=== PATIENT | female | born 1995 | race Caucasian/White ===

== ENCOUNTER 2017-04-30 19:46 | Emergency (ER) | payer BC, OTHER ==
[~2017-04-30] VITALS: Ht 157.5 cm; Wt 59.0 kg
[2017-04-30] MEDS ORDERED: DESO1TAB35 (20:40)
[2017-04-30 21:25] LABS: KETONES,URINE 1+ (NEGATIVE); LEUKOCYTE ESTERASE ,URINE 2+ (NEGATIVE); NITRITE,URINE NEGATIVE (NEGATIVE); PH,URINE 5 (5-9); PROTEIN,URINE 1+ (NEGATIVE); UROBILINOGEN,URINE 4 MG/DL (NORMAL)
[2017-04-30 21:32] LABS: SQUAMOUS EPITHELIAL CELL,UR 25-50 /HPF
[2017-04-30 21:33] LABS: BILIRUBIN,URINE 1+ (NEGATIVE)
--- NOTE | 2017-04-30 21:43 | ED Back Pain ---
General Chief Complaint: Back Problems Stated Complaint: BACK PAIN Nursing Triage Note: c/o LEFT LOWER BACK PAIN STARTING OVER THE SUMMER. STATES NO INJURY. HAS BEEN SEEING CHIROPRACTOR BUT THIS WEEK THE PAIN HAS BEEN WORSE. SAW [facility] THIS WEEK AND WAS GIVEN MUSCLE RELAXOR AND ANTIINFLAMMATORIES BUT NOT WORKING. NO RADIATION, NUMBESS OR TINGLING Source of Information: Patient Exam Limitations: No Limitations History of Present Illness Time Seen by Provider: 21:43 Initial Comments 21-year-old female patient presents to the emergency department complains of left low back pain for approximately 3-4 months. Denies any known injury. Patient states she was seen by a chiropractor at the end of February without improvement in symptoms. Patient was given a muscle relaxant and Naprosyn earlier this week without improvement in symptoms. Patient is scheduled on May 26 with Joaquina Holt. Denies bowel or bladder incontinence. Denies fever, chills, N/V/D. Pain occasionally radiates to the rt low back. Location: Paraspinous Muscles Timing/Duration: Other (3-4 months) Pain/Injury Location: Back Method of Injury: Unknown Modifying Factors: Worse With Movement Associated Symptoms: muscle spasms, No fever, No weakness, No numbness in legs/ feet, No tingling in legs/feet, No sensory/motor loss, lower back pain, No loss of bladder control, No loss of bowel control Allergies and Home Medications Allergies Coded Allergies: No Known Drug Allergies (Unverified , 04/30/17) Home Medications Desogestrel-Ethinyl Estradiol 1 Each Tablet, (Reported) Nitrofurantoin Monohyd/M-Cryst 100 Mg Capsule, 1 TAB PO BID, #14 Ref 0 Prescribed by: JOSE SYLVESTER on 04/30/17 2337 Prednisone 20 Mg Tab, 40 MG PO DAILY, #10 Ref 0 Prescribed by: JOSE SYLVESTER on 04/30/17 2325 Tramadol HCl 50 Mg Tablet, 50 MG PO Q4H PRN for PAIN-MILD TO MODERATE, #14 Ref 0 Prescribed by: JOSE SYLVESTER on 04/30/174 Constitutional: No chills, No fever, No malaise EENTM: no symptoms reported Respiratory: no symptoms reported Cardiovascular: no symptoms reported Gastrointestinal: No abdominal pain, No constipation, No diarrhea, No nausea, No vomiting Genitourinary: No decreased output, No discharge, No dysuria, No frequency, No hematuria Musculoskeletal: see HPI, back pain, No joint pain Skin: no symptoms reported Psychiatric/Neurological: Denies Numbness, Denies Paresthesia, Denies Tingling , Denies Weakness All Other Systems Reviewed Negative Unless Noted: Yes (Negative excepted noted.) Past Jpsqqar-Wxcose-Jehdga Hx Patient Social History Alcohol Use: Occasionally Uses Recreational Drug Use: No 2nd Hand Smoke Exposure: No Recent Foreign Travel: No Contact w/Someone Who Travel: No Recent Hopitalizations: No Physical Abuse: No Sexual Abuse: No Mistreated: No Fear: No Immunizations Up To Date Tetanus Booster (TDap): Less than 5yrs PED Vaccines UTD: Yes Seasonal Allergies Seasonal Allergies: No Surgeries History of Surgeries: Yes Surgeries: Adenoidectomy, Tonsillectomy Respiratory History of Respiratory Disorde: No Cardiovascular History of Cardiac Disorders: No Neurological History of Neurological Disord: Yes Neurological Disorders: Headaches /Migraines Genitourinary History of Genitourinary Disor: No Gastrointestinal History of Gastrointestinal Di: No Musculoskeletal History of Musculoskeletal Dis: No Endocrine History of Endocrine Disorders: No HEENT History of HEENT Disorders: No Cancer History of Cancer: No Psychosocial History of Psychiatric Problem: No Suicide Risk Score: 0 Integumentary History of Skin or Integumenta: No Blood Transfusions History of Blood Disorders: No Adverse Reaction to a Blood Tr: No Reviewed Nursing Assessment Reviewed/Agree w Nursing PMH: Yes Family Medical History Significant Family History: No Pertinent Family Hx Physical Exam Vital Signs Vital Sign - Last 12Hours 04/30/17 04/30/17 20:34 23:48 Temp 97.6 Pulse 88 Resp 18 B/P (MAP) 124/92 Pulse Ox 99 Capillary Refill : General Appearance: No Apparent Distress, WD/WN HEENT: PERRL/EOMI, Pharynx Normal Neck: Normal Inspection, Supple Cardiovascular: Regular Rate, Rhythm, No Edema, No Murmur, Normal Peripheral Pulses Respiratory: Lungs Clear, Normal Breath Sounds, No Accessory Muscle Use, No Respiratory Distress Peripheral Pulses: 2+ Dorsalis Pedis (R), 2+ Left Dors-Pedis (L), 2+ Radial Pulses (R), 2+ Radial Pulses (L) Gastrointestinal: Normal Bowel Sounds, No Organomegaly, Soft, No Distended, No Guarding, No Rebound, Tenderness (mild suprapubic tenderness.) Back: Normal Inspection, No CVA Tenderness, No Vertebral Tenderness, No Decreased Range of Motion Extremity: Normal Capillary Refill, Normal Inspection, Normal Range of Motion, Non Tender, No Calf Tenderness, No Pedal Edema Neurologic/Psychiatric: Alert, Oriented x3, No Motor/Sensory Deficits, Normal Mood/Affect Skin: Normal Color, Warm/Dry Progress/Results/Core Measures Results/Orders Lab Results Laboratory Tests Test 04/30/17 20:30 Range/Units Urine Color YELLOW Urine Clarity SLIGHTLY CLOUDY Urine pH 5 5-9 Urine Specific [place] 1.025 H 1.016-1.022 Urine Protein 1+ H NEGATIVE Urine Glucose (UA) NEGATIVE NEGATIVE Urine Ketones 1+ H NEGATIVE Urine Nitrite NEGATIVE NEGATIVE Urine Bilirubin 1+ H NEGATIVE Urine Urobilinogen 4 H NORMAL MG/DL Urine Leukocyte Esterase 2+ H NEGATIVE Urine RBC (Auto) NEGATIVE NEGATIVE Urine RBC NONE /HPF Urine WBC 10-25 H /HPF Urine Squamous Epithelial Cells 25-50 H /HPF Urine Crystals NONE /LPF Urine Bacteria MODERATE H /HPF Urine Casts NONE /LPF Urine Mucus NEGATIVE /LPF Urine Culture Indicated YES Micro Results Microbiology 04/30/17 Urine Culture - Final, Complete My Orders Orders - JOSE SYLVESTER Urine Bedside (04/30/17 21:20) Ua Culture If Indicated (04/30/17 21:20) Urine Culture (04/30/17 20:30) Lumbar Spine - 2-3 Views (04/30/17 22:02) Hydrocodone/Apap 5/325 Tablet (Lortab 5 (04/30/17 22:02) Orphenadrine Injection (Norflex Injectio (04/30/17 22:02) Rx-Nitrofurantoin Bland (Rx-Macrobid) (04/30/17 22:02) Prednisone Tablet (Deltasone Tablet) (04/30/17 22:15) Rx-Hydrocodone/Apap 5-325 Mg (Rx-Vicodin (04/30/17 22:30) Medications Given in ED Vital Signs/I&O Vital Sign - Last 12Hours 04/30/17 04/30/17 20:34 23:48 Temp 97.6 97.9 Pulse 88 88 Resp 18 18 B/P (MAP) 124/92 Pulse Ox 99 Point of Care Testing Urine -Bedside: Negative Diagnostic Imaging Diagonstic Imaging: Xray Plain Films/CT/US/NM/MRI: other (lumbar spine) Comments no acute bony abnormality. straightening of the lordotic curve most likely related to muscle spasm. Reviewed: Reviewed/Discussed (reviewed with Dr. Nickerson) Departure Communication (Admissions) Progress Notes All laboratory and diagnostic findings discussed with the patient. Plan for discharge to home with prescriptions for Macrobid, tramadol, and prednisone. Patient to follow-up with Dr. Joaquina Holt as previously scheduled. Impression Impression: Primary Impression: Urinary tract infection Qualified Codes: N30.00 - Acute cystitis without hematuria Additional Impression: Strain of muscle, fascia and tendon of lower back, initial encounter Disposition: HOME, SELF-CARE Condition: Improved Departure-Patient Inst. Decision time for Depature: 22:51 Referrals: [facility] (PCP/Family) Primary Care Physician Patient Instructions: Lumbar Muscle Strain (DC), Urinary Tract Infection, Adult (DC) Add. Discharge Instructions: All discharge instructions reviewed with patient and/or family. Voiced understanding. Medications as instructed. Continue Naprosyn and Flexeril. Ice packs or heating pads as needed for pain. No lifting, pushing, pulling, twisting, bending, climbing 7 days. Then increase activity slowly as tolerated. Follow-up with [facility] as an outpatient for recheck. Follow-up with Dr. Holt as previously scheduled. Return to the emergency department for worsened pain, numbness, weakness, bowel incontinence, bladder incontinence, fever, inability to urinate, painful urination, or any other concerns. Scripts Nitrofurantoin Monohyd/M-Cryst (Macrobid 100 mg Capsule) 100 Mg Capsule 1 TAB PO BID, #14 CAP 0 Refills Prov: JOSE SYLVESTER 04/30/17 Prednisone (Prednisone) 20 Mg Tab 40 MG PO DAILY, #10 TAB 0 Refills Prov: JOSE SYLVESTER 04/30/17 Tramadol HCl (Tramadol HCl) 50 Mg Tablet 50 MG PO Q4H Y for PAIN-MILD TO MODERATE, #14 TAB 0 Refills Prov: JOSE SYLVESTER 04/30/17 JOSE SYLVESTER Apr 30, 2017 21:43
[2017-04-30] MEDS ORDERED: HYDROcodone/APAP 5 MG/325 MG (LORTAB) TAB PO STA (22:02)
[2017-04-30] MEDS ORDERED: RX-NITROFURANTOIN 100 MG (MACROBID) CAP PPK#2 PO STA (22:02)
[2017-04-30] MEDS ORDERED: ORPHENADRINE 60 MG/2 ML (NORFLEX) AMP IM STA (22:02)
[2017-04-30] MEDS ORDERED: predniSONE 20 MG TAB PO ONE (22:15)
[2017-04-30] MEDS ORDERED: RX-HYDROCODONE/APAP 5/325 MG #4 TAB PK PO PRN (22:30)
[2017-04-30] MEDS ORDERED: TRAM50TA2 PO (23:24)
[2017-04-30] MEDS ORDERED: PRD20T PO (23:25)
[2017-04-30] MEDS ORDERED: NITR-65 PO (23:37)
--- NOTE | 2017-05-01 08:31 | Diagnostic Imaging Report ---
INDICATION: Low back pain. No known injury. TECHNIQUE: AP, Lateral, and Spot imaging of the lumbar spine. CORRELATION STUDY: None. FINDINGS: There is rather significant straightening of the normal lumbar lordotic curvature. Alignment otherwise anatomic. Lumbar vertebral body heights and disc spaces maintained. No findings to suggest acute bony abnormality. SI joints unremarkable. IMPRESSION: No radiographic evidence for acute bony abnormality of the lumbar spine. There is rather pronounced straightening could be owing to splinting, muscle spasm, and/or simply patient positioning. Dictated by: Dictated on workstation # [id number]
== END 2017-04-30 23:49 | disposition home or self-care (01) ==
LOC: ER 19:50
DX: S39.012A Strain of muscle, fascia and tendon of lower back, initial encounter (principal); N39.0 Urinary tract infection, site not specified; G43.909 Migraine, unspecified, not intractable, without status migrainosus; Z32.02 Encounter for pregnancy test, result negative; Z90.89 Acquired absence of other organs; X50.0XXA Overexertion from strenuous movement or load, initial encounter
CPT/HCPCS: 72100; 81000; 84703; 87088; 96372; 99284